=== PATIENT | female | born 1945 | race Caucasian/White ===

== ENCOUNTER → 2016-11-02 | Outpatient (CLI) | payer MEDICARE, OTHER ==
--- NOTE | 2016-11-02 15:39 | MRI ---
EXAM DESCRIPTION: MR LUMBAR SPINE WITHOUT IV CONTRAST CLINICAL HISTORY: 71 y/o F, RADICULOPATHY COMPARISON: None TECHNIQUE: Multi planar, multi sequence imaging of the lumbar spine was acquired without IV contrast. FINDINGS: Vertebral body height, alignment and marrow signal are unremarkable. There is disc desiccation at all levels with in acute Schmorl's node noted along the inferior endplate of L4 and the superior endplate of L5. L1-L2: 3 mm circumferential disc bulge. No facet degeneration. No spinal canal or neural foraminal narrowing. L2-L3: 2 mm circumferential disc bulge. No spinal canal or neural foraminal narrowing. L3-4: Mild 2 mm circumferential disc bulge. No spinal canal or neural foraminal narrowing. L4-5: Mild facet degeneration. The AP diameter of spinal canal is unremarkable. The left neural foramen is unremarkable. There is moderate right neural foraminal narrowing and contact of the exiting right L4 nerve root. L5-S1: Mild facet degeneration, left greater than right. Bilateral neural foramen and spinal canal are unremarkable. 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 Additionally at L4-5 there is contact of the exiting right L4 nerve root. This is due to narrowing of the right neural foramen. This could result in a right L4 radiculopathy if the patient is symptomatic. Electronically signed by: Javon Yoon MD 11/02/2016 15:37
== END ==
LOC: MRI 12:57
PROVIDERS: ATTEND Family Medicine
DX: M54.16 Radiculopathy, lumbar region (principal); M12.88 Other specific arthropathies, not elsewhere classified, other specified site; M51.46 Schmorl's nodes, lumbar region